=== PATIENT | male | born 1980 | race African-American/Black ===

== ENCOUNTER 2022-11-18 17:42 | Emergency (ER) | payer OTHER ==
[~2022-11-18] VITALS: Ht 175.3 cm; Wt 83.2 kg
[2022-11-18 17:43] VITALS: BP 160/107; RESP 18; O2SAT 96
[2022-11-18 18:08] VITALS: PULSE 87
[2022-11-18 21:59] LABS: Urine Bacteria NONE SEEN /hpf (None Seen); Urine Blood Negative /uL (Negative); Urine Clarity Clear (Clear); Urine Color Colorless (Yellow); Urine Protein, UAD Negative (Negative); Urine Specific Gravity 1.005 (1.001-1.035); Urine WBC 1 /hpf (0 - 3)
== END 2022-11-19 00:10 | disposition left against medical advice (07) ==
LOC: ER 17:42
DX: R42 Dizziness and giddiness (principal); Z53.21 Procedure and treatment not carried out due to patient leaving prior to being seen by health care provider
CPT/HCPCS: 81001; 93005